=== PATIENT | female | born 1950 | race Caucasian/White ===

== ENCOUNTER 2023-05-01 19:00 | Inpatient (IN) | payer MEDICARE, OTHER ==
[~2023-05-01] VITALS: Ht 170.2 cm; Wt 170.1 kg
[2023-05-01 20:23] LABS: BASOPHILS # (AUTO) 0.1 K/uL (0.0-0.2); BASOPHILS % (AUTO) 0.6 % (0.0-2.0); EOSINOPHILS % (AUTO) 0.4 % (0.0-6.0); HEMATOCRIT 33 % (33-45); HEMOGLOBIN 9.9 g/dL (11.5-14.8); LYMPHOCYTES # (AUTO) 1.1 K/uL (0.8-4.8); LYMPHOCYTES % (AUTO) 10.3 % (20.0-44.0); MEAN CORPUSCULAR HEMOGLOBIN 23 PG (26.0-33.0); MEAN CORPUSCULAR HGB CONC 30 g/dl (31.0-36.0); MEAN CORPUSCULAR VOLUME 79 fL (82-100); MONOCYTES # (AUTO) 0.7 K/uL (0.1-1.30); MONOCYTES % (AUTO) 6.2 % (2.0-12.0); NEUTROPHILS # (AUTO) 9.2 K/uL (1.8-8.9); NEUTROPHILS % (AUTO) 82.5 % (43.0-81.0); PLATELET COUNT (AUTO) 326 K/uL (150-450); RED BLOOD CELL COUNT(AUTO) 4.22 MIL/uL (4.0-5.2); RED CELL DISTRIBUTION WIDTH 18.6 % (11.5-15.0); WHITE BLOOD COUNT (AUTO) 11.1 K/uL (4.3-11.0)
[2023-05-01 20:28] LABS: CALCIUM, SERUM 8.9 mg/dL (8.5-10.1); CARBON DIOXIDE 32 mmol/L (21-32); CHLORIDE 100 mmol/L (98-107); CREATININE 0.9 mg/dL (0.6-1.3); GLUCOSE 105 mg/dL (74-106); POTASSIUM 3.5 mmol/L (3.5-5.1); SODIUM SERUM 139 mmol/L (136-145); UREA NITROGEN, BLOOD 15 mg/dL (7-18)
[2023-05-01 20:34] LABS: ALANINE AMINOTRANSFERASE 8 U/L (12-78); ALBUMIN 2.6 g/dL (3.4-5.0); ALKALINE PHOSPHATASE 174 U/L (46-116); ASPARTATE AMINOTRANSFERASE 14 U/L (15-37); BILIRUBIN,DIRECT 0.1 mg/dL (0.0-0.2); BILIRUBIN,TOTAL 0.5 mg/dL (0.2-1.0); LIPASE 13 U/L (16-77); TOTAL PROTEIN, SERUM 6.9 g/dL (6.4-8.2)
[2023-05-01] MEDS ORDERED: ZOLPIDEM TARTRATE 5 MG TABLET PO PRN (22:00)
[2023-05-01] MEDS ORDERED: Z GUARD REMEDY 4 OZ OINT TP PRN (22:00)
[2023-05-01] MEDS ORDERED: MAGNESIUM HYDROXIDE 30 ML UDC PO PRN (22:00)
[2023-05-01] MEDS ORDERED: MAG HYDROX/AL HYDROX/SIMETH 30 ML UDC PO PRN (22:00)
[2023-05-01] MEDS ORDERED: LACTULOSE 10 G/15 ML UDC (PYXIS) PO ONE (23:08)
[2023-05-01 23:10] VITALS: BP 134/87; TEMP 98.4; O2SAT 98
[2023-05-01] MEDS: TRAMADOL HCL 50 MG TABLET PO PRN (23:37)
[2023-05-01] MEDS: POLYETHYLENE GLYCOL 3350 17 GM POWD.PACK PO SCH (23:37)
[2023-05-02] MEDS ORDERED: HYDROCODONE/APAP 10/325MG TABLET PO ONE
[2023-05-02] MEDS: IV NS 0.9% 1,000 ML IV PRN ×2 (00:41→17:56)
[2023-05-02] MEDS: ONDANSETRON HCL/PF 4 MG/2 ML VIAL IVP PRN ×2 (00:49→19:43)
[2023-05-02 01:46] LABS: ANISOCYTOSIS 1+; BAND % (MANUAL) 1 % (0.0-5.0); LYMPHOCYTES % (MANUAL) 8 % (16-48); MONOCYTES % (MANUAL) 2 % (0-11.0); NEUTROPHILS % (MANUAL) 89 (42-76); PLATELET ESTIMATE ADEQUATE; STOMATOCYTES 1+
[2023-05-02] MEDS: ACETAMINOPHEN 325 MG TABLET PO PRN ×4 (03:39→20:36)
[2023-05-02] MEDS ORDERED: LORAZEPAM INJ 2 MG/ML VIAL IV ONE (04:30)
[2023-05-02 07:00] VITALS: BP 128/79; TEMP 98.4; O2SAT 94
[2023-05-02 07:04] LABS: BASOPHILS % (AUTO) 0.2 % (0.0-2.0); EOSINOPHILS % (AUTO) 0.3 % (0.0-6.0); HEMATOCRIT 32 % (33-45); LYMPHOCYTES # (AUTO) 1.2 K/uL (0.8-4.8); LYMPHOCYTES % (AUTO) 11.4 % (20.0-44.0); MEAN CORPUSCULAR HEMOGLOBIN 24 PG (26.0-33.0); MEAN CORPUSCULAR HGB CONC 31 g/dl (31.0-36.0); MEAN CORPUSCULAR VOLUME 78 fL (82-100); MONOCYTES # (AUTO) 0.7 K/uL (0.1-1.30); MONOCYTES % (AUTO) 6.6 % (2.0-12.0); NEUTROPHILS # (AUTO) 8.9 K/uL (1.8-8.9); NEUTROPHILS % (AUTO) 81.5 % (43.0-81.0); PLATELET COUNT (AUTO) 317 K/uL (150-450); RED BLOOD CELL COUNT(AUTO) 4.15 MIL/uL (4.0-5.2); WHITE BLOOD COUNT (AUTO) 10.9 K/uL (4.3-11.0)
[2023-05-02 07:23] LABS: CALCIUM, SERUM 8.9 mg/dL (8.5-10.1); CREATININE 0.9 mg/dL (0.6-1.3); MAGNESIUM 2.8 mg/dL (1.8-2.4); PHOSPHORUS 3.3 mg/dL (2.5-4.9); POTASSIUM 3.3 mmol/L (3.5-5.1)
[2023-05-02] MEDS ORDERED: BISA10SU11 RC (08:28)
[2023-05-02] MEDS ORDERED: ASCO500T10 PO (08:28)
[2023-05-02] MEDS ORDERED: RIVA10TA PO (08:28)
[2023-05-02] MEDS ORDERED: DOCU100C36 PO (08:28)
[2023-05-02] MEDS ORDERED: FOLI0.8C PO (08:28)
[2023-05-02] MEDS ORDERED: PROTEIN LIQUID PO (08:28)
[2023-05-02] MEDS ORDERED: ARGI1POW13 PO (08:28)
[2023-05-02] MEDS ORDERED: BUME1TAB8 PO (08:28)
[2023-05-02] MEDS ORDERED: IPRA3AMP22 IH (08:28)
[2023-05-02] MEDS ORDERED: ALLA266C2 TP (08:28)
[2023-05-02] MEDS ORDERED: LORA-258 PO (08:28)
[2023-05-02] MEDS ORDERED: HYDR-3980 PO (08:28)
[2023-05-02] MEDS ORDERED: ONDA4TAB5 PO (08:28)
[2023-05-02] MEDS ORDERED: MAGN400T8 PO (08:28)
[2023-05-02] MEDS ORDERED: PHEN26CR2 RC (08:28)
[2023-05-02] MEDS ORDERED: PETR113O TP (08:28)
[2023-05-02] MEDS ORDERED: NA P133E RC (08:28)
[2023-05-02] MEDS ORDERED: MAGN400O6 PO (08:28)
[2023-05-02] MEDS ORDERED: ATOR10TA PO (08:28)
[2023-05-02] MEDS ORDERED: ACET-2605 PO (08:28)
[2023-05-02] MEDS ORDERED: SERT25TA5 PO (08:28)
[2023-05-02] MEDS ORDERED: ACET-868 PO (08:28)
[2023-05-02] MEDS ORDERED: ZINC50TA65 PO (08:28)
[2023-05-02] MEDS ORDERED: NYST30CR3 TP (08:28)
[2023-05-02] MEDS ORDERED: LEVO137T24 PO (08:28)
[2023-05-02] MEDS ORDERED: NEOM28.43 TP (08:28)
[2023-05-02] MEDS: TRAMADOL HCL 50 MG TABLET PO PRN ×2 (09:23→21:29)
[2023-05-02] MEDS ORDERED: POTASSIUM CHLORIDE 20 MEQ POWDER PACKET PO ONE (10:00)
[2023-05-02] MEDS ORDERED: PEG 3350/NA SULF,BICARB,CL/KCL 4,000 ML BOTTLE PO ONE ×2 (14:30→16:00)
[2023-05-02] MEDS: LORAZEPAM 1 MG TABLET PO PRN ×2 (15:14→22:56)
[2023-05-02 16:00] VITALS: BP 131/66; TEMP 98.3; O2SAT 92
[2023-05-02 20:00] VITALS: BP 142/96; TEMP 98.4; O2SAT 93
[2023-05-02] MEDS ORDERED: MINERAL OIL 133 ML (PYXIS) 1 EA ENEMA RC PRN (22:00)
[2023-05-02] MEDS: POLYETHYLENE GLYCOL 3350 17 GM POWD.PACK PO SCH (22:31)
[2023-05-03] MEDS: ACETAMINOPHEN 325 MG TABLET PO PRN ×2 (02:19→09:32)
[2023-05-03] MEDS: TRAMADOL HCL 50 MG TABLET PO PRN (06:53)
[2023-05-03] MEDS: ONDANSETRON HCL/PF 4 MG/2 ML VIAL IVP PRN (06:53)
[2023-05-03] MEDS: IV NS 0.9% 1,000 ML IV PRN ×2 (07:10→20:38)
[2023-05-03 07:14] LABS: BASOPHILS % (AUTO) 0.2 % (0.0-2.0); EOSINOPHILS # (AUTO) 0.1 K/uL (0.0-0.7); EOSINOPHILS % (AUTO) 0.5 % (0.0-6.0); HEMATOCRIT 34 % (33-45); HEMOGLOBIN 10.4 g/dL (11.5-14.8); LYMPHOCYTES % (AUTO) 8.2 % (20.0-44.0); MEAN CORPUSCULAR HEMOGLOBIN 24 PG (26.0-33.0); MEAN CORPUSCULAR HGB CONC 30 g/dl (31.0-36.0); MEAN CORPUSCULAR VOLUME 78 fL (82-100); MONOCYTES # (AUTO) 0.9 K/uL (0.1-1.30); NEUTROPHILS # (AUTO) 10.5 K/uL (1.8-8.9); NEUTROPHILS % (AUTO) 84.1 % (43.0-81.0); PLATELET COUNT (AUTO) 336 K/uL (150-450); RED CELL DISTRIBUTION WIDTH 18.5 % (11.5-15.0); WHITE BLOOD COUNT (AUTO) 12.5 K/uL (4.3-11.0)
[2023-05-03 07:39] LABS: ALBUMIN 2.3 g/dL (3.4-5.0); BILIRUBIN,TOTAL 0.4 mg/dL (0.2-1.0); CALCIUM, SERUM 8.6 mg/dL (8.5-10.1); CREATININE 0.8 mg/dL (0.6-1.3); MAGNESIUM 3.1 mg/dL (1.8-2.4); PHOSPHORUS 3.3 mg/dL (2.5-4.9); POTASSIUM 3.5 mmol/L (3.5-5.1); TOTAL PROTEIN, SERUM 6.6 g/dL (6.4-8.2)
[2023-05-03 08:00] VITALS: BP 108/67; TEMP 98.6; O2SAT 100
[2023-05-03] MEDS: LORAZEPAM 1 MG TABLET PO PRN ×2 (08:22→16:28)
[2023-05-03] MEDS ORDERED: HYDROCODONE/APAP 5/325MG TABLET PO PRN (13:00)
[2023-05-03] MEDS: HYDROCODONE/APAP 5/325MG TABLET PO PRN ×2 (13:20→19:56)
[2023-05-03] MEDS: LEVOTHYROXINE SODIUM 137 MCG TABLET PO SCH (14:32)
[2023-05-03 16:00] VITALS: BP 153/82; TEMP 98.6; O2SAT 100
[2023-05-03] MEDS: BUMETANIDE (1 MG) 1 MG TABLET PO SCH (16:28)
[2023-05-03] MEDS: RIVAROXABAN 10 MG TABLET PO SCH (17:25)
[2023-05-03 20:00] VITALS: BP 150/74; TEMP 97.5; O2SAT 93
[2023-05-03] MEDS: ATORVASTATIN 10 MG TABLET PO SCH (21:07)
[2023-05-03] MEDS: POLYETHYLENE GLYCOL 3350 17 GM POWD.PACK PO SCH (21:07)
[2023-05-04] MEDS: LORAZEPAM 1 MG TABLET PO PRN ×3 (00:35→22:39)
[2023-05-04] MEDS: HYDROCODONE/APAP 5/325MG TABLET PO PRN ×3 (04:38→20:17)
[2023-05-04 07:30] VITALS: BP 120/63; TEMP 98.4; O2SAT 94
[2023-05-04] MEDS: ACETAMINOPHEN 325 MG TABLET PO PRN ×2 (08:29→21:43)
[2023-05-04] MEDS: ASCORBIC ACID 500 MG TABLET PO SCH (08:33)
[2023-05-04] MEDS: SERTRALINE HCL 25 MG TABLET PO SCH (08:33)
[2023-05-04] MEDS: BUMETANIDE (1 MG) 1 MG TABLET PO SCH ×2 (08:34→17:20)
[2023-05-04] MEDS: LEVOTHYROXINE SODIUM 137 MCG TABLET PO SCH (08:34)
[2023-05-04] MEDS ORDERED: HYDROCODONE/APAP 5/325MG TABLET PO STA (14:41)
[2023-05-04] MEDS: IV NS 0.9% 1,000 ML IV PRN (15:48)
[2023-05-04 16:29] VITALS: BP 125/61; TEMP 98.1; O2SAT 93
[2023-05-04] MEDS: RIVAROXABAN 10 MG TABLET PO SCH (17:21)
[2023-05-04 20:00] VITALS: BP 142/52; TEMP 97.7; O2SAT 95
[2023-05-04] MEDS: QUETIAPINE FUMARATE 100 MG TABLET PO SCH ×2 (21:23→21:38)
[2023-05-04] MEDS: ATORVASTATIN 10 MG TABLET PO SCH ×2 (21:23→21:38)
[2023-05-04] MEDS: POLYETHYLENE GLYCOL 3350 17 GM POWD.PACK PO SCH ×2 (21:23→21:38)
[2023-05-04] MEDS ORDERED: HYDROCODONE/APAP 10/325MG TABLET PO PRN (23:30)
[2023-05-05] MEDS: ACETAMINOPHEN 325 MG TABLET PO PRN ×3 (04:22→21:42)
[2023-05-05] MEDS: IV NS 0.9% 1,000 ML IV PRN (05:12)
[2023-05-05 07:30] VITALS: BP 146/65; TEMP 98.6; O2SAT 95
[2023-05-05] MEDS: SENNOSIDES/DOCUSATE SODIUM 1 TAB TABLET PO SCH (09:21)
[2023-05-05] MEDS: LEVOTHYROXINE SODIUM 137 MCG TABLET PO SCH (09:21)
[2023-05-05] MEDS: SERTRALINE HCL 25 MG TABLET PO SCH (09:21)
[2023-05-05] MEDS: ASCORBIC ACID 500 MG TABLET PO SCH (09:21)
[2023-05-05] MEDS: DOCUSATE SODIUM 100 MG CAPSULE PO SCH ×3 (09:21→17:12)
[2023-05-05] MEDS: BUMETANIDE (1 MG) 1 MG TABLET PO SCH ×2 (09:21→17:10)
[2023-05-05] MEDS: HYDROCODONE/APAP 5/325MG TABLET PO PRN ×2 (10:24→17:18)
[2023-05-05] MEDS: LORAZEPAM 1 MG TABLET PO PRN ×2 (14:13→22:19)
[2023-05-05 16:00] VITALS: BP 128/62; TEMP 97.7; O2SAT 93
[2023-05-05] MEDS: RIVAROXABAN 10 MG TABLET PO SCH (17:12)
[2023-05-05 19:30] VITALS: BP 115/72; TEMP 98.8; O2SAT 97
[2023-05-05] MEDS: POLYETHYLENE GLYCOL 3350 17 GM POWD.PACK PO SCH (21:05)
[2023-05-05] MEDS: QUETIAPINE FUMARATE 100 MG TABLET PO SCH (21:05)
[2023-05-05] MEDS: ATORVASTATIN 10 MG TABLET PO SCH (21:05)
[2023-05-06] MEDS: HYDROCODONE/APAP 5/325MG TABLET PO PRN ×3 (00:01→14:15)
[2023-05-06] MEDS: IV NS 0.9% 1,000 ML IV PRN (01:11)
[2023-05-06 08:00] VITALS: BP 142/75; TEMP 97.7; O2SAT 98
[2023-05-06] MEDS: LORAZEPAM 1 MG TABLET PO PRN (08:04)
[2023-05-06] MEDS: DOCUSATE SODIUM 100 MG CAPSULE PO SCH ×3 (08:04→12:43)
[2023-05-06] MEDS: ASCORBIC ACID 500 MG TABLET PO SCH (08:05)
[2023-05-06] MEDS: BUMETANIDE (1 MG) 1 MG TABLET PO SCH (08:05)
[2023-05-06] MEDS: SENNOSIDES/DOCUSATE SODIUM 1 TAB TABLET PO SCH ×2 (08:05→08:23)
[2023-05-06] MEDS: LEVOTHYROXINE SODIUM 137 MCG TABLET PO SCH (08:05)
[2023-05-06] MEDS: SERTRALINE HCL 25 MG TABLET PO SCH (08:05)
== END 2023-05-06 14:45 | DRG 389 ==
LOC: ER 19:14 → MED 22:58
PROVIDERS: ADMIT Nurse Practitioner Acute Care
PROC: 05HF33Z Insertion of Infusion Device into Left Cephalic Vein, Percutaneous Approach (ICD-10-PCS; principal; 2023-05-01)
DX: K56.41 Fecal impaction (principal); E44.0 Moderate protein-calorie malnutrition; I48.20 Chronic atrial fibrillation, unspecified; I50.32 Chronic diastolic (congestive) heart failure; J96.11 Chronic respiratory failure with hypoxia; Z68.43 Body mass index [BMI] 50.0-59.9, adult; Z59.00 Homelessness unspecified; F33.9 Major depressive disorder, recurrent, unspecified; K52.89 Other specified noninfective gastroenteritis and colitis; I11.0 Hypertensive heart disease with heart failure; E66.01 Morbid (severe) obesity due to excess calories; E11.9 Type 2 diabetes mellitus without complications; K74.60 Unspecified cirrhosis of liver; Z20.822 Contact with and (suspected) exposure to COVID-19; M79.7 Fibromyalgia; E03.9 Hypothyroidism, unspecified; F29 Unspecified psychosis not due to a substance or known physiological condition; G89.4 Chronic pain syndrome; F41.9 Anxiety disorder, unspecified; Z88.2 Allergy status to sulfonamides; Z88.8 Allergy status to other drugs, medicaments and biological substances; D72.829 Elevated white blood cell count, unspecified; G47.33 Obstructive sleep apnea (adult) (pediatric); E88.09 Other disorders of plasma-protein metabolism, not elsewhere classified; F43.10 Post-traumatic stress disorder, unspecified; I87.2 Venous insufficiency (chronic) (peripheral); I89.0 Lymphedema, not elsewhere classified; N20.0 Calculus of kidney; Z79.899 Other long term (current) drug therapy; Z79.01 Long term (current) use of anticoagulants; Z79.51 Long term (current) use of inhaled steroids
CPT/HCPCS: 36415; 71045-TC; 80048-TC; 80053-TC; 80076-TC; 83690-TC; 83735-TC; 84100-TC; 84443-TC; 85025-TC; 87081-TC; A4223; G0378; J2060; J2405; J7030